=== PATIENT | female | born 1975 | race Caucasian/White ===

== ENCOUNTER 2016-07-26 12:24 | Emergency (ER) | payer BC ==
[~2016-07-26] VITALS: Ht 170.2 cm; Wt 78.8 kg
[~2016-07-26 12:24] MED LIST: AUGMENTIN875 MG PO; BENADRYL ALLERG25 MG PO; CEFTIN500 MG PO; DAILY VALUE1 EACH PO; FIORICET 50-301 EACH PO; FLEXERIL10 MG PO; LEVOTHYROXINE88 MCG PO; MAXALT10 MG PO; NAPROSYN500 MG PO; OXYCODONE-ACET1 EACH PO; PERCOCET 5/31 TABLET PO; PREDNISONE50 MG PO; PROMETHAZINE HC25 M1 PO; PROPRANOLOL HCL60 MG PO; RELPAX20 MG PO; SPRINTEC1 EACH PO; TOPIRAMATE50 MG PO; ULTRACET1 TABLET PO; VICODIN ES 7.51 EAC1 PO
[2016-07-26 14:41] LABS: HEMATOCRIT 37.6 % (36.0-46.0); MCH 27.4 PG (29.0-34.0); MCHC 32.4 G/DL (30.0-36.0); MCV 84.5 FL (83-99); MEAN PLAT.VOLUME 9.2 uM^3 (9.5-12.4); PLATELET COUNT 364 K/uL (156-360); RBC DIS.WIDTH-CV 14.2 % (11.8-14.6); RBC DIS.WIDTH-SD 43.8 % (39-53); RED BLOOD COUNT 4.45 M/uL (3.80-5.20); WHITE BLOOD COUNT 7.7 K/uL (4.1-10.2)
[2016-07-26 14:52] LABS: D-DIMER ELISA 0.36 mg/L FEU (< 0.57)
[2016-07-26 14:56] LABS: CHLORIDE 102 mEq/L (99-109); POTASSIUM 4.1 mEq/L (3.7-5.4); SODIUM 138 mEq/L (136-147)
[2016-07-26 14:58] LABS: GLUCOSE 99 mg/dL (70-99)
[2016-07-26 14:59] LABS: ANION GAP 12 MEQ/L (2-14)
[2016-07-26 15:01] LABS: TROP-I INTERPRETATION NEGATIVE; TROPONIN-I < 0.01 ng/mL (0.0-0.30)
[2016-07-26 15:02] LABS: GFR ESTIMATE (CALCULATED) > 59 mL/min/
[2016-07-26 15:03] LABS: UREA NITROGEN (BUN) 11 mg/dL (9-23)
[2016-07-26 15:12] LABS: QUANTITATIVE HCG < 4.0 MIU/ML
[2016-07-26 16:56] LABS: TROP-I INTERPRETATION NEGATIVE; TROPONIN-I < 0.01 ng/mL (0.0-0.30)
[2016-07-26 17:13] VITALS: BP 132/76
[2016-07-27] MEDS ORDERED: PROMETHAZINE HC25 M1 PO (20:32)
[2016-07-27] MEDS ORDERED: RIZATRIPTAN10 MG PO (20:33)
[2016-07-27] MEDS ORDERED: DAILY VITE1 EAC1 PO (20:33)
[2016-07-27] MEDS ORDERED: HAIR, SKIN AND1 EACH PO (20:34)
== END 2016-07-26 17:14 | disposition home or self-care (01) ==
LOC: EME 12:24 → EXP 12:24
PROVIDERS: Nurse Practitioner Family
DX: R07.89 Other chest pain (principal); E03.9 Hypothyroidism, unspecified
CPT/HCPCS: 71020; 80048; 84484; 84702; 85027; 85379; 93005; 99281; 99284

== ENCOUNTER 2016-07-27 15:01 | Observation (INO) | payer BC ==
[~2016-07-27] VITALS: Ht 170.2 cm; Wt 79.7 kg
[2016-07-27 15:47] LABS: HEMATOCRIT 36.8 % (36.0-46.0); MCH 27.5 PG (29.0-34.0); MCHC 32.3 G/DL (30.0-36.0); MEAN PLAT.VOLUME 8.7 uM^3 (9.5-12.4); PLATELET COUNT 339 K/uL (156-360); RBC DIS.WIDTH-CV 14.3 % (11.8-14.6); RBC DIS.WIDTH-SD 44.8 % (39-53); RED BLOOD COUNT 4.33 M/uL (3.80-5.20); WHITE BLOOD COUNT 6.2 K/uL (4.1-10.2)
[2016-07-27 15:57] LABS: CHLORIDE 104 mEq/L (99-109); POTASSIUM 4.4 mEq/L (3.7-5.4); SODIUM 140 mEq/L (136-147)
[2016-07-27 15:59] LABS: GLUCOSE 95 mg/dL (70-99)
[2016-07-27 16:00] LABS: ANION GAP 11 MEQ/L (2-14)
[2016-07-27 16:02] LABS: GFR ESTIMATE (CALCULATED) > 59 mL/min/
[2016-07-27 16:03] LABS: UREA NITROGEN (BUN) 17 mg/dL (9-23)
[2016-07-27 16:11] LABS: TROP-I INTERPRETATION NEGATIVE; TROPONIN-I < 0.01 ng/mL (0.0-0.30)
[2016-07-27 18:44] LABS: TROP-I INTERPRETATION NEGATIVE; TROPONIN-I < 0.01 ng/mL (0.0-0.30)
[2016-07-27] MEDS ORDERED: PROMETHAZINE HC25 M1 PO (20:32)
[2016-07-27] MEDS ORDERED: DAILY VITE1 EAC1 PO (20:33)
[2016-07-27] MEDS ORDERED: RIZATRIPTAN10 MG PO (20:33)
[2016-07-27] MEDS ORDERED: HAIR, SKIN AND1 EACH PO (20:34)
[2016-07-27 22:36] VITALS: BP 106/64
[2016-07-28 01:59] LABS: TROP-I INTERPRETATION NEGATIVE; TROPONIN-I < 0.01 ng/mL (0.0-0.30)
[2016-07-28 04:27] VITALS: BP 106/51
[2016-07-28 07:22] VITALS: BP 99/59
[2016-07-28 08:04] VITALS: BP 1020/60
[2016-07-28 09:02] LABS: HEMATOCRIT 30.6 % (36.0-46.0); MCH 28.3 PG (29.0-34.0); MCV 85.7 FL (83-99); MEAN PLAT.VOLUME 9.1 uM^3 (9.5-12.4); PLATELET COUNT 277 K/uL (156-360); RBC DIS.WIDTH-CV 14.6 % (11.8-14.6); RBC DIS.WIDTH-SD 45.5 % (39-53); RED BLOOD COUNT 3.57 M/uL (3.80-5.20)
[2016-07-28 09:04] LABS: WHITE BLOOD COUNT 3.7 K/uL (4.1-10.2)
[2016-07-28 09:08] LABS: ALKALINE PHOSPHATASE 45 IU/L (3-129); ANION GAP 7 MEQ/L (2-14); CHLORIDE 105 MEQ/L (99-109); GFR ESTIMATE (CALCULATED) > 59 mL/min/; GLUCOSE 77 mg/dL (70-99); POTASSIUM 4.1 MEQ/L (3.7-5.4); SAMPLE HEMOLYSIS CHECK 0; SAMPLE ICTERIC CHECK 0; SAMPLE LIPEMIA CHECK 0; SODIUM 139 MEQ/L (136-147); TOTAL BILIRUBIN 1.1 MG/DL (0.0-1.0); UREA NITROGEN (BUN) 16 mg/dL (9-23)
[2016-07-28 09:19] LABS: TROP-I INTERPRETATION NEGATIVE; TROPONIN-I < 0.01 ng/mL (0.0-0.30)
[2016-07-28 10:05] LABS: AMPHETAMINES QUANT VALUE 0 NG/ML; BARBITUATES QUANT VALUE 0 NG/ML; BENZODIAZEPINES QUANT VALUE 0 NG/ML; BENZODIAZEPINES, URINE SCREEN Negative (200 ng/mL); MARIJUANA QUANT VALUE 0 NG/ML; PHENCYCLIDINE QUANT VALUE 0 NG/ML
[2016-07-28] MEDS ORDERED: ASPIR-LOW81 MG PO (10:09)
== END 2016-07-28 11:03 | disposition home or self-care (01) ==
LOC: RME 15:01 → EME 15:01 → EDOF 21:15 → 5WEST 22:20
PROVIDERS: Internal Medicine; Physician Assistant
DX: R07.89 Other chest pain (principal); M54.9 Dorsalgia, unspecified; R20.2 Paresthesia of skin; G43.909 Migraine, unspecified, not intractable, without status migrainosus; E03.9 Hypothyroidism, unspecified; R00.2 Palpitations; R42 Dizziness and giddiness
CPT/HCPCS: 71020; 71275; 80048; 80053; 80306 90; 84443; 84484; 85027; 85379; 93005; 99281; 99285; G0378; J1644; J1885; J2060; J2270; J7030

== ENCOUNTER 2017-03-15 18:12 | Emergency (ER) | payer BC ==
[~2017-03-15] VITALS: Ht 167.6 cm; Wt 86.5 kg
[~2017-03-15 18:12] MED LIST changes: +ASPIR-LOW81 MG PO; +DAILY VITE1 EAC1 PO; +HAIR, SKIN AND1 EACH PO; +RIZATRIPTAN10 MG PO
[2017-03-15 19:16] LABS: BASOPHIL COUNT 0.1 K/uL (0-0.1); EOSINOPHIL COUNT 0.1 K/uL (0-0.3); HEMOGLOBIN 11.6 G/DL (11.9-15.5); IMMATURE GRANULOCYTE (%) 0.1 % (0.0-0.7); MCH 28.6 PG (29.0-34.0); MCHC 33.1 G/DL (30.0-36.0); MCV 86.4 FL (83-99); MONOCYTE (%) 8.1 % (3-12); MONOCYTE COUNT 0.6 K/uL (0-0.8); NEUTROPHIL (%) 63.8 % (45-76); NEUTROPHIL COUNT 4.9 K/uL (1.8-6.4); PLATELET COUNT 348 K/uL (156-360); RBC DIS.WIDTH-CV 15.7 % (11.8-14.6); RBC DIS.WIDTH-SD 49.9 % (39-53); RED BLOOD COUNT 4.05 M/uL (3.80-5.20); WHITE BLOOD COUNT 7.8 K/uL (4.1-10.2)
[2017-03-15 19:27] LABS: CHLORIDE 108 mEq/L (99-109); POTASSIUM 3.9 mEq/L (3.7-5.4); SODIUM 140 mEq/L (136-147)
[2017-03-15 19:29] LABS: GLUCOSE 98 mg/dL (70-99)
[2017-03-15 19:33] LABS: CREATININE 0.8 mg/dL (0.6-1.3); GFR ESTIMATE (CALCULATED) > 59 mL/min/; UREA NITROGEN (BUN) 16 mg/dL (9-23)
[2017-03-15 19:39] LABS: APPEARANCE CLEAR ((CLEAR)); BILIRUBIN NEGATIVE; BLOOD SMALL; COLOR YELLOW ((YELLOW)); GLUCOSE (STRIP) NEGATIVE; KETONES 5; LEUKOCYTES NEGATIVE; NITRITE NEGATIVE; PROTEIN (STRIP) NEGATIVE; SPECIFIC GRAVITY 1.019 (1.000-1.030)
[2017-03-15 19:41] LABS: QUANTITATIVE HCG < 4.0 MIU/ML
[2017-03-15 19:42] LABS: BACTERIA NONE SEEN /HPF; EPITHELIAL CELLS RARE /HPF; MUCUS NONE SEEN /LPF; RED BLOOD CELLS 0-5 /HPF (0-5); UCUL ADDED? NO; WHITE BLOOD CELLS 0-5 /HPF (0-5)
[2017-03-15 22:10] VITALS: BP 128/82
== END 2017-03-15 22:11 | disposition home or self-care (01) ==
LOC: EME 18:12
PROVIDERS: Physician Assistant
DX: N93.9 Abnormal uterine and vaginal bleeding, unspecified (principal); G43.909 Migraine, unspecified, not intractable, without status migrainosus
CPT/HCPCS: 76856; 80048; 81003; 84702; 85025; 99281; 99283